=== PATIENT | female | born 1965 | race Caucasian/White ===

== ENCOUNTER → 2016-11-18 | Outpatient (CLI) | payer OTHER ==
[~2016-11-18] MED LIST: B-COTAB18 PO; LEVO50TA6 PO; LINA1CAP2 PO; RABE20TA5 PO; VITAMIN D3 PO
--- NOTE | 2016-11-18 14:00 | DIAGNOSTIC IMAGING REPORT ---
NUCLEAR GASTRIC EMPTYING STUDY CLINICAL HISTORY: Gastroesophageal reflux disease. Esophagitis. COMPARISON STUDY: Abdominal ultrasound dated 10/02/2015. TECHNIQUE: Following the oral administration of 1.139 mCi of technetium 99m sulfur colloid in egg sandwich and 8 ounces of water, static abdominal images are obtained anteriorly and posteriorly at 0 minutes, 1 hour, 2 hour, and 4 hour time intervals. Gastric emptying was calculated utilizing the geometric mean method. FINDINGS: There is approximately 75% activity remaining at the 1 hour time interval, 36% remaining at the 2 hour time interval (normal is less than 60%), and 0% activity remaining at the 4 hour time interval (normal is less than 10%). IMPRESSION: Findings are consistent with normal gastric emptying for solids. Electronically signed by: Shon Alston M.D. 11/18/2016 1:59 PM Dictated Date/Time: 11/18/2016 1:58 PM
== END | disposition home or self-care (01) ==
LOC: C.NUCL 09:17
PROVIDERS: ATTEND Registered Nurse
DX: K21.9 Gastro-esophageal reflux disease without esophagitis (principal)

== ENCOUNTER → 2016-12-02 | Day surgery (SDC) | payer OTHER ==
[2016-11-13 13:06] VITALS: BMI 35.0
[~2016-12-02] VITALS: Ht 167.6 cm; Wt 98.6 kg
[~2016-12-02] MED LIST changes: +FENTANYL CITRATE INJ 50 MCG/1 ML 2 ML VIAL ONE; +PROPOFOL IV EMULSION 10 MG/ML 20 ML VIAL IV ONE; +SODIUM CHLORIDE 0.9% 500ML 500 ML IV ONE
[2016-12-02 10:09] VITALS: Ht 167.6 cm; Wt 98.6 kg
--- NOTE | 2016-12-02 11:00 | Endo History and Physical ---
History & Physical Date of Service: Dec 02, 2016. Chief Complaint: BARRETTS GERD ESOPHAGITIS Referring Physician: PAULINE MEADOWS History of Present Illness 51 yo CF who presents for EGD secondary to Buchanan's Esophagus. Past Medical History Arthritis, Gastrointestinal Disorder, Reflux, Blood Dyscrasias, Cancer, Thyroid Disease Past Surgical History Hx Cardiac Surgery: No Hx Internal Defibrillator: No Hx Pacemaker: No Hx Abdominal Surgery: Yes (LYSIS OF ADHESION WITH MESH, LAP TIFFANIE) Hx of Implantable Prosthesis: No Hx Post-Op Nausea and Vomiting: No Hx Cancer Surgery: Yes (RT BREAST LUMPECTOMY) Hx Thoracic Surgery: No Hx Orthopedic: Yes (RT SHOULDER SURGERY) Hx Urinary Tract Surgery: No Family History Colon CA Social History Smoking Status: Former Smoker Hx Substance Use: No Hx Alcohol Use: No Allergies Coded Allergies: Caffeine (Verified Allergy, Unknown, HEART PALPITATIONS, 12/02/16) Sulfamethoxazole w/Trimethoprim (Verified Allergy, Unknown, SWELLING, 12/02) Tetracycline (Verified Allergy, Unknown, SWELLING, 12/02/16) Current Medications Reported Home Medications Medications Dose Route/Sig Max Daily Dose Days Date Category Vitamin B Complex (B-Complex Vitamins) 1 Tab Tab 1 Tab PO QAM 11/13/16 Reported [Vitamin D3] 1 Tab PO QAM 11/13/16 Reported Aciphex (Rabeprazole Sodium) 20 Mg Tab 20 Mg PO BID 11/13/16 Reported Levothyroxine Sodium 50 Mcg Tab 1 Tab PO QAM 90 11/13/16 Reported Linzess (Linaclotide) 290 Mcg Cap 1 Cap PO QAM 10/10/15 Reported Vital Signs Weight (Kilograms): 98.64 Height (Feet): 5 Height (Inches): 6 Date Time Temp Pulse Resp B/P (MAP) Pulse Ox O2 Delivery O2 Flow Rate FiO2 12/02/16 10:14 36.8 53 20 127/77 (94) 96 Room Air Physical Exam General Appearance: WD/WN, no apparent distress Respiratory/Chest: Auscultation: breath sounds normal Cardiovascular: Heart Auscultation: RRR Abdomen: Bowel Sounds: normal Inspection & Palpation: soft, non-distended, no tenderness, guarding & rebound Assessment and Plan Assessment: 51 yo CF who presents for EGD secondary to Buchanan's Esophagus. Plan: Proceed with EGD
--- NOTE | 2016-12-02 11:12 | Discharge Instructions ---
Endoscopy Patient Instructions Date / Procedure(s) Performed Dec 02, 2016. EGD Allergy Information Coded Allergies: Caffeine (Verified Allergy, Unknown, HEART PALPITATIONS, 12/02/16) Sulfamethoxazole w/Trimethoprim (Verified Allergy, Unknown, SWELLING, 12/02) Tetracycline (Verified Allergy, Unknown, SWELLING, 12/02/16) Discharge Date / Findings Dec 02, 2016. Esophageal stricture s/p dilation Buchanan's Esophagus s/p biopsies Medication Instructions Continue Aciphex 20mg by mouth daily 1/2 hour prior to eating OK to resume all medications as prescribed Reported Home Medications Medications Dose Route/Sig Max Daily Dose Days Date Category Vitamin B Complex (B-Complex Vitamins) 1 Tab Tab 1 Tab PO QAM 11/13/16 Reported [Vitamin D3] 1 Tab PO QAM 11/13/16 Reported Aciphex (Rabeprazole Sodium) 20 Mg Tab 20 Mg PO BID 11/13/16 Reported Levothyroxine Sodium 50 Mcg Tab 1 Tab PO QAM 90 11/13/16 Reported Linzess (Linaclotide) 290 Mcg Cap 1 Cap PO QAM 10/10/15 Reported Provider Instructions Activity Restrictions - No exercising or heavy lifting for 24 hours. - Do not drink alcohol the day of the procedure. - Do not drive a car or operate machinery until the day after the procedure. - Do not make any important decisions or sign important papers in 24 hours after the procedure. Following Day: - Return to full activity which may include returning to work/school. Diet Start your diet with liquids and light foods (jello, soup, juice, toast). Then eat your usual diet if not nauseated. Treatment For Common After Affects For mild abdominal pain, bloating, or excessive gas: - Rest - Eat lightly - Lie on right side Follow-Up Information Follow-up with PAULINE MEADOWS as scheduled Anesthesia Information What You Should Know You have had a procedure that required some medicine to reduce anxiety and discomfort. This treatment is called moderate sedation. After receiving the treatment, you may be sleepy, but you will be able to breathe on your own. The effects of the treatment may last for several hours. Follow these instructions along with Activity/Diet recommendations noted above: * Do NOT do anything where dizziness or clumsiness would be dangerous. * Rest quietly at home today, then you can be up and about tomorrow. * Have a responsible person stay with you the rest of today. * You may have had an I.V. today. If so, you may take the dressing off later today. Recommendations Call your doctor if: * Trouble breathing * Continuous vomiting for more than 24 hours * Temperature above 101 degrees * Severe abdominal pain or bloating * Pain not relieved by pain medicine ordered * There is increased drainage or redness from any incision * A large amount of rectal bleeding greater than 2-3 tablespoons. (If you had a polyp/s removed or have hemorrhoids, a small amount of blood - from the rectum is to be expected.) * You have any unanswered questions or concerns. IN THE EVENT OF A SERIOUS EMERGENCY, GO TO THE NEAREST EMERGENCY ROOM Your discharge instructions were prepared by provider Ramsey Hinkle. Patient Instructions Signature Page Emilia Short Patient (or Guardian) Signature/Date: I have read and understand the instructions given to me by my caregivers. Caregiver/RN/Doctor Signature/Date: The above-named patient and/or guardian has received patient instructions on this date. + Original Patient Signature Page (only) stays with chart. Please make copy for patient.
--- NOTE | 2016-12-02 11:17 | GI REPORT ---
Procedure Date: 12/02/2016 10:51 AM Procedure: Upper GI endoscopy Indications: Follow-up of Buchanan's esophagus Medicines: Monitored Anesthesia Care Complications: No immediate complications. Estimated Blood Loss: Estimated blood loss: none. Procedure: Pre-Anesthesia Assessment: - Prior to the procedure, a History and Physical was performed, and patient medications and allergies were reviewed. The patient's tolerance of previous anesthesia was also reviewed. The risks and benefits of the procedure and the sedation options and risks were discussed with the patient. All questions were answered, and informed consent was obtained. Prior Anticoagulants: The patient has taken no previous anticoagulant or antiplatelet agents. ASA Grade Assessment: II - A patient with mild systemic disease. After reviewing the risks and benefits, the patient was deemed in satisfactory condition to undergo the procedure. After obtaining informed consent, the endoscope was passed under direct vision. Throughout the procedure, the patient's blood pressure, pulse, and oxygen saturations were monitored continuously. The scope was introduced through the mouth, and advanced to the second part of duodenum. The upper GI endoscopy was accomplished without difficulty. The patient tolerated the procedure well. Findings: There were esophageal mucosal changes consistent with short-segment Buchanan's esophagus present at the gastroesophageal junction. The maximum longitudinal extent of these mucosal changes was 2 cm in length. Mucosa was biopsied with a cold forceps for histology. One specimen bottle was sent to pathology. One moderate benign-appearing, intrinsic stenosis was found. This measured 1.5 cm (inner diameter) x less than one cm (in length) and was traversed. A TTS dilator was passed through the scope. Dilation with an 18-19-20 mm balloon (to a maximum balloon size of 20 mm) dilator was performed. The dilation site was examined and showed moderate improvement in luminal narrowing. The stomach was normal. The examined duodenum was normal. Impression: - Esophageal mucosal changes consistent with short-segment Buchanan's esophagus. Biopsied. - Benign-appearing esophageal stenosis. Dilated. - Normal stomach. - Normal examined duodenum. Recommendation: - Resume previous diet. - Continue present medications. - Await pathology results. - Repeat the upper endoscopy PRN for retreatment. - Return to primary care physician as previously scheduled. Ramsey Hinkle DO 12/02/2016 11:17:25 AM This report has been signed electronically. Note Initiated On: 12/02/2016 10:51 AM I attest to the content of the Intraoperative Record and orders documented therein, exceptions below
--- NOTE | 2016-12-02 11:42 | Anesthesiology Progress Note ---
Anesthesia Post Op Note Date & Time Dec 02, 2016 at 11:42 Vital Signs Pain Intensity: 0 Vital Signs Past 12 Hours Date Time Temp Pulse Resp B/P (MAP) Pulse Ox O2 Delivery O2 Flow Rate FiO2 12/02/16 11:34 53 20 120/63 (82) 97 Room Air 12/02/16 11:17 55 20 104/65 (78) 96 Room Air 12/02/16 10:14 36.8 53 20 127/77 (94) 96 Room Air Notes Mental Status: alert / awake / arousable, participated in evaluation Pt Amnestic to Procedure: Yes Nausea / Vomiting: adequately controlled Pain: adequately controlled Airway Patency, RR, SpO2: stable & adequate BP & HR: stable & adequate Hydration State: stable & adequate Anesthetic Complications: no major complications apparent
[2016-12-02 11:50] VITALS: BP 117/60; PULSE 62; O2SAT 97
== END | disposition home or self-care (01) ==
LOC: C.GI 09:51
PROVIDERS: ATTEND Internal Medicine
DX: K22.70 Barrett's esophagus without dysplasia (principal); K22.2 Esophageal obstruction; K21.9 Gastro-esophageal reflux disease without esophagitis; D75.9 Disease of blood and blood-forming organs, unspecified; E07.9 Disorder of thyroid, unspecified; Z87.891 Personal history of nicotine dependence; Z80.0 Family history of malignant neoplasm of digestive organs; Z79.899 Other long term (current) drug therapy

== ENCOUNTER → 2017-08-24 | Outpatient (CLI) | payer OTHER ==
[~2017-08-24] MED LIST changes: -FENTANYL CITRATE INJ 50 MCG/1 ML 2 ML VIAL ONE; -PROPOFOL IV EMULSION 10 MG/ML 20 ML VIAL IV ONE; -SODIUM CHLORIDE 0.9% 500ML 500 ML IV ONE
--- NOTE | 2017-08-24 14:16 | DIAGNOSTIC IMAGING REPORT ---
CHEST 2 VIEWS ROUTINE CLINICAL HISTORY: COUGH,R UPPER QUADRANT PAIN, R10.11 pain. Nausea. COMPARISON STUDY: No previous studies for comparison. FINDINGS: The bones soft tissues and hemidiaphragms are normal. The cardiomediastinal silhouette is normal. The lungs are clear. The pulmonary vasculature is normal. IMPRESSION: Negative chest. The above report was generated using voice recognition software. It may contain grammatical, syntax or spelling errors. Electronically signed by: Juan Carlos Reina M.D. 08/24/2017 2:15 PM Dictated Date/Time: 08/24/2017 2:15 PM
[2017-08-24 14:35] LABS: BASO % 0.3 %; BASO ABS # 0.02 K/uL (0-0.2); EOS % 1.4 %; EOS ABS # 0.09 K/uL (0-0.5); HEMATOCRIT 40.5 % (37-47); HEMOGLOBIN 13.8 g/dL (12.0-16.0); IG# 0.01 K/uL (0.00-0.02); LYMPH % 36.7 %; LYMPH ABS # 2.42 K/uL (1.2-3.4); MEAN CELL VOLUME 88.8 fL (80-100); MEAN CORPUSCULAR HEMOGLOBIN 30.3 pg (25-34); MEAN CORPUSCULAR HGB CONC 34.1 g/dl (32-36); MEAN PLATELET VOLUME 9.8 fL (7.4-10.4); MONO % 6.5 %; MONO ABS # 0.43 K/uL (0.11-0.59); NEUT % 54.9 %; NEUT ABS # 3.63 K/uL (1.4-6.5); PLATELET COUNT 349 K/uL (130-400); RED CELL DISTRIBUTION WIDTH CV 12.6 % (11.5-14.5); RED CELL DISTRIBUTION WIDTH SD 40.3 fL (36.4-46.3)
[2017-08-24 15:02] LABS: ALBUMIN 4.1 gm/dl (3.4-5.0); ALT/SGPT 30 U/L (12-78); BLOOD UREA NITROGEN 11 mg/dl (7-18); CALCIUM 9.2 mg/dl (8.5-10.1); CARBON DIOXIDE 27 mmol/L (21-32); CREATININE 0.64 mg/dl (0.60-1.20); GLUCOSE 84 mg/dl (70-99); LIPASE 163 U/L (73-393); POTASSIUM 3.7 mmol/L (3.5-5.1); SODIUM 140 mmol/L (136-145)
[2017-08-24 15:05] LABS: ALKALINE PHOSPHATASE 92 U/L (45-117); AST/SGOT 21 U/L (15-37); TOTAL PROTEIN 7.6 gm/dl (6.4-8.2)
== END | disposition home or self-care (01) ==
LOC: C.RAD 13:15
PROVIDERS: ATTEND Registered Nurse
DX: R05 Cough (principal); R10.11 Right upper quadrant pain